=== PATIENT | male | born 1970 | race Caucasian/White ===

== ENCOUNTER 2016-10-15 22:08 | Emergency (ER) | payer OTHER ==
[2016-10-15 23:15] LABS: BASOPHIL 0.3 % (0-2); EOSINOPHIL 0.5 % (0-5); HGB 15.1 g/dl (13.2-18.0); LYMPHOCYTE 22.9 % (15-48); MCH 31.8 pg (25.0-31.0); MCV 88.4 fL (78.0-100.0); MONOCYTE 14.3 % (0-12); MPV 8.7 fL (6.0-9.5); PLT 325 K/uL (150-400); RBC 4.75 M/uL (4.70-6.00); RDW 13.2 % (11.5-14.0); WBC 12.3 K/uL (4.0-10.5)
[2016-10-15 23:26] LABS: TROPONIN T < 0.010 ng/mL
[2016-10-15 23:30] LABS: CKMB 6.64 ng/mL (0.97-4.94)
[2016-10-15 23:46] LABS: ALBUMIN 4.9 g/dL (3.5-5.0); BILIRUBIN - TOTAL 0.4 mg/dL (0.1-1.0); CREATININE 1.1 mg/dL (0.7-1.2); GLOBULIN (CALCULATION) 2.2 g/dL (2.2-4.2); MAGNESIUM 1.95 mg/dL (1.40-2.10); POTASSIUM 3.7 mmol/L (3.5-5.1); TOTAL PROTEIN 7.1 g/dL (6.4-8.3)
[2016-10-16 00:25] LABS: BILIRUBIN NEGATIVE (NEGATIVE); BLOOD NEGATIVE Ery/uL (NEGATIVE); CLARITY CLEAR (CLEAR); GLUCOSE (U) NORMAL (NORMAL); KETONE (U) NEGATIVE (NEGATIVE); LEUKOCYTES NEGATIVE Leu/uL (NEGATIVE); NITRITE NEGATIVE (NEGATIVE); PROTEIN NEGATIVE (NEGATIVE); SPECIFIC GRAVITY <=1.005 (1.001-1.030); UROBILINOGEN 0.2 mg/dL (0.2-1.0); pH 5.5 (5.0-9.0)
[2016-10-16 00:26] LABS: COLOR COLORLESS (YELLOW)
== END 2016-10-16 00:43 | disposition home or self-care (01) ==
LOC: FER 22:08
PROVIDERS: Emergency Medicine Emergency Medical Services
DX: R00.2 Palpitations (principal); E86.0 Dehydration; R25.2 Cramp and spasm; I11.9 Hypertensive heart disease without heart failure; F17.210 Nicotine dependence, cigarettes, uncomplicated; Z79.899 Other long term (current) drug therapy; Z95.5 Presence of coronary angioplasty implant and graft
CPT/HCPCS: 36415; 71010; 80053; 81003; 82550; 82553; 83735; 84484; 85025; 93005; J3360

== ENCOUNTER 2020-08-02 17:01 | Emergency (ER) | payer OTHER ==
[~2020-08-02 17:01] MED LIST: ASPIRIN EC81 MG PO; ATORVASTATIN CA10 MG PO; CARDIZEM CD240 MG PO; COREG 6.25MG6.25 MG PO; ELIQUIS2.5 MG PO; FLEXERIL10 MG PO; HEART PILL; KEFLEX250 MG PO; LIPITOR40 MG PO; LISINOPRIL 20MG20 MG PO; MOBIC7.5 MG PO; MOTRIN600 MG PO; NITROQUIK SL0.4 MG SL; PREDNISONE 20MG20 MG PO; PROVENTIL HFA6.7 GM INH; TOPROL XL 25MG25 MG PO; TOPROL XL 50 MG50 MG PO; ZESTRIL5 MG PO
[2020-08-02 17:59] LABS: BASOPHIL 0.7 % (0-2); HCT 44.7 % (42.0-52.0); HGB 15.2 g/dl (13.2-18.0); LYMPHOCYTE 25.1 % (15-48); MCH 32.7 pg (25.0-31.0); MCV 96.1 fL (78.0-100.0); MONOCYTE 10.7 % (0-12); MPV 8.9 fL (6.0-9.5); NEUTROPHIL 62.1 % (41-80); NRBC 0; PLT 254 K/uL (150-400); RBC 4.65 M/uL (4.70-6.00); RDW 12.4 % (11.5-14.0); WBC 9.2 K/uL (4.0-10.5)
[2020-08-02 18:10] LABS: BUN/CREAT RATIO (CALC) 16.8 RATIO; CREATININE 1.25 mg/dL (0.67-1.17); POTASSIUM 3.9 mmol/L (3.5-5.1)
[2020-08-02 20:01] LABS: CORONAVIRUS 2019 SARS-COV-2 NEGATIVE (NEGATIVE); INFLUENZA A NAA NEGATIVE (NEGATIVE)
[2020-08-02] MEDS ORDERED: PREDNISONE 20MG20 MG PO (21:32)
[2020-08-02] MEDS ORDERED: AUGMENTIN 875-1 EACH PO (21:32)
== END 2020-08-02 22:10 | disposition home or self-care (01) ==
LOC: FER 17:01
PROVIDERS: Nurse Practitioner Family
DX: J06.9 Acute upper respiratory infection, unspecified (principal); R04.2 Hemoptysis; J44.9 Chronic obstructive pulmonary disease, unspecified; I25.2 Old myocardial infarction; Z95.5 Presence of coronary angioplasty implant and graft; Z20.822 Contact with and (suspected) exposure to COVID-19
CPT/HCPCS: 36415; 71045; 71275; 80048; 85025; J0696; J1100; Q9967; U0002

== ENCOUNTER 2020-10-22 08:08 | Emergency (ER) | payer OTHER ==
[~2020-10-22 08:08] MED LIST changes: +AUGMENTIN 875-1 EACH PO
[2020-10-22 08:30] LABS: BASOPHIL 0.8 % (0-2); EOSINOPHIL 1.9 % (0-5); HCT 44.9 % (42.0-52.0); HGB 15.6 g/dl (13.2-18.0); LYMPHOCYTE 23.3 % (15-48); MCH 32.8 pg (25.0-31.0); MCHC 34.7 g/dL (32.0-36.0); MCV 94.3 fL (78.0-100.0); MPV 8.7 fL (6.0-9.5); NEUTROPHIL 63.4 % (41-80); NRBC 0; PLT 270 K/uL (150-400); RBC 4.76 M/uL (4.70-6.00); RDW 12.7 % (11.5-14.0); WBC 7.8 K/uL (4.0-10.5)
[2020-10-22 08:54] LABS: ALBUMIN 3.7 g/dL (3.4-5.0); BILIRUBIN - TOTAL 0.4 mg/dL (0.2-1.0); BUN/CREAT RATIO (CALC) 18.6 RATIO; CREATININE 0.7 mg/dL (0.67-1.17); GLOBULIN (CALCULATION) 3.9 g/dL; POTASSIUM 4.1 mmol/L (3.5-5.1); TOTAL PROTEIN 7.6 g/dL (6.4-8.2)
== END 2020-10-22 09:06 | disposition home or self-care (01) ==
LOC: FER 08:08
PROVIDERS: Emergency Medicine
DX: R07.89 Other chest pain (principal); I45.10 Unspecified right bundle-branch block; I25.10 Atherosclerotic heart disease of native coronary artery without angina pectoris; Z95.5 Presence of coronary angioplasty implant and graft
CPT/HCPCS: 36415; 71045; 80053; 84484; 85025; 93005

== ENCOUNTER 2020-12-31 12:41 | Emergency (ER) | payer OTHER ==
[2020-12-31 13:25] LABS: BASOPHIL 0.6 % (0-2); EOSINOPHIL 0.8 % (0-5); HCT 44.7 % (42.0-52.0); HGB 15.6 g/dl (13.2-18.0); LYMPHOCYTE 23.5 % (15-48); MCH 32.8 pg (25.0-31.0); MCHC 34.9 g/dL (32.0-36.0); MCV 94.1 fL (78.0-100.0); MONOCYTE 8.3 % (0-12); MPV 8.6 fL (6.0-9.5); NEUTROPHIL 66.3 % (41-80); NRBC 0; PLT 296 K/uL (150-400); RBC 4.75 M/uL (4.70-6.00); RDW 12.4 % (11.5-14.0); WBC 9.5 K/uL (4.0-10.5)
[2020-12-31 13:47] LABS: ALBUMIN 3.8 g/dL (3.4-5.0); BILIRUBIN - TOTAL 0.3 mg/dL (0.2-1.0); BUN/CREAT RATIO (CALC) 12.1 RATIO; CREATININE 0.91 mg/dL (0.67-1.17); GLOBULIN (CALCULATION) 3.8 g/dL; POTASSIUM 4.2 mmol/L (3.5-5.1); TOTAL PROTEIN 7.6 g/dL (6.4-8.2)
[2020-12-31 13:52] LABS: LACTIC ACID 1.5 mmol/L (0.4-1.9)
[2020-12-31 14:33] LABS: CORONAVIRUS 2019 SARS-COV-2 NEGATIVE (NEGATIVE); INFLUENZA A NAA NEGATIVE (NEGATIVE)
[2020-12-31 15:26] LABS: BILIRUBIN NEGATIVE (NEGATIVE); BLOOD NEGATIVE Ery/uL (NEGATIVE); CLARITY CLEAR (CLEAR); COLOR YELLOW (YELLOW); GLUCOSE (U) NORMAL (NORMAL); LEUKOCYTES NEGATIVE Leu/uL (NEGATIVE); NITRITE NEGATIVE (NEGATIVE); PROTEIN NEGATIVE (NEGATIVE); SPECIFIC GRAVITY 1.015 (1.001-1.030); UROBILINOGEN 0.2 mg/dL (0.2-1.0); pH 5.5 (5.0-9.0)
[2020-12-31] MEDS ORDERED: AZITHROMYCIN250 MG PO (15:59)
[2020-12-31] MEDS ORDERED: VENTOLIN HFA IN18 GM INH (15:59)
[2020-12-31] MEDS ORDERED: PREDNISONE 20MG20 MG PO (15:59)
== END 2020-12-31 16:20 | disposition home or self-care (01) ==
LOC: FER 12:41
PROVIDERS: Nurse Practitioner Family
DX: M94.0 Chondrocostal junction syndrome [Tietze] (principal); J18.9 Pneumonia, unspecified organism; I10 Essential (primary) hypertension; I25.2 Old myocardial infarction; F17.210 Nicotine dependence, cigarettes, uncomplicated; Z95.5 Presence of coronary angioplasty implant and graft; Z20.822 Contact with and (suspected) exposure to COVID-19
CPT/HCPCS: 36415; 71101; 80053; 81003; 83605; 84484; 85025; 85379; 87040; 93005; 94010; J1100; J7030; U0002

== ENCOUNTER 2021-12-17 21:23 | Emergency (ER) | payer OTHER ==
[~2021-12-17 21:23] MED LIST changes: +AZITHROMYCIN250 MG PO; +VENTOLIN HFA IN18 GM INH
[2021-12-17 22:55] LABS: BASOPHIL 0.7 % (0-2); EOSINOPHIL 2.5 % (0-5); HCT 40.5 % (42.0-52.0); HGB 14.1 g/dl (13.2-18.0); MCH 33.7 pg (25.0-31.0); MCHC 34.8 g/dL (32.0-36.0); MCV 96.9 fL (78.0-100.0); MONOCYTE 8.2 % (0-12); MPV 8.9 fL (6.0-9.5); NEUTROPHIL 62.9 % (41-80); NRBC 0; PLT 263 K/uL (150-400); RBC 4.18 M/uL (4.70-6.00); RDW 12.7 % (11.5-14.0); WBC 11.2 K/uL (4.0-10.5)
[2021-12-17 23:35] LABS: ALBUMIN 3.5 g/dL (3.4-5.0); CREATININE 1.06 mg/dL (0.67-1.17); GLOBULIN (CALCULATION) 3.2 g/dL; POTASSIUM 4.4 mmol/L (3.5-5.1); TOTAL PROTEIN 6.7 g/dL (6.4-8.2)
[2021-12-17 23:36] LABS: BILIRUBIN - TOTAL 0.4 mg/dL (0.2-1.0)
== END 2021-12-18 00:10 | disposition home or self-care (01) ==
LOC: FER 21:23
PROVIDERS: Emergency Medicine
DX: M79.672 Pain in left foot (principal); R22.42 Localized swelling, mass and lump, left lower limb; R07.89 Other chest pain; I25.10 Atherosclerotic heart disease of native coronary artery without angina pectoris; I10 Essential (primary) hypertension; I48.91 Unspecified atrial fibrillation; Z95.5 Presence of coronary angioplasty implant and graft; F17.200 Nicotine dependence, unspecified, uncomplicated
CPT/HCPCS: 36415; 71045; 73630; 80053; 84484; 85025; 93005; 93971; J1885; J7030